=== PATIENT | female | born 1980 | race Caucasian/White ===

== ENCOUNTER 2017-04-26 16:14 | Emergency (ER) | payer OTHER ==
[~2017-04-26] VITALS: Ht 170.2 cm; Wt 122.5 kg
--- NOTE | ~2017-04-26 | CR170 ---
[facility] A Service of [facility] & [facility] RADIOLOGY TEXT RESULTS PATIENT: LA CAMPBELL LOCATION: [facility] : 82 UNIT #: [id number] AGE: [address]: Sushma Prasad APRN SEX: F ORDER DR: [id number] [facility] [address] [place], [place] [address] [id number] E MR#: [id number] Acc #: [id number] NAME: LA CAMPBELL : 1980 SEX: F STUDY DATE/TIME: 04/26/2017 16:36 UNIT: [facility] ROOM: STUDY DESCRIPTION: CR Knee 2 Views Rt Attending Physician: Sushma Prasad A.P.R.N. Ordering Physician: Ed Doctor [id number] [facility] REPORT This report is preliminary unless electronic signature is present EXAM Two views right knee. Date: 04/26/2017 HISTORY Posterior knee pain for 2 weeks. No known injury. COMPARISON None. FINDINGS AP and lateral projection of the knee shows smooth articular anatomy without indication of fracture or dislocation at the major weight-bearing surface of the knee. There is no indication of radiopaque foreign body about the knee surface or joint effusion. IMPRESSION Normal knee. Dictated by... Vanessa Guevara M.D. THIS IS AN ELECTRONICALLY VERIFIED REPORT Vanessa Guevara M.D. at 04/28/2017 8:51 AM BRENT/ting TD: 04/27/2017 04:59 JOB #: [id number] MEDICAL IMAGING REPORT Page 1 of 1 COPY
[~2017-04-26 16:14] MED LIST: ACYCLOVIR400 MG PO; AMOXICILLIN PO; AMOXICILLIN500 M1 PO; BACTRIM DS TABL1 TA1 PO; BENADRYL25 MG PO; CIPRO PO; CLARITIN10 MG PO; FLEXERIL PO; FLEXERIL10 MG PO; GLUCOPHAGE XR500 MG PO; IBUPROFEN800 MG PO; KEFLEX500 MG PO; LORTAB 5/500 TA1 TA1 PO; MAGIC MOUTHWASH PO; MAGIC MOUTHWASH TOP; METFORMIN PO; NAPROSYN500 MG PO; NO MEDICATIONS; ORUDIS75 M1 PO; PEN-VEE K PO; PHENERGAN25 M1 PO; PREDNISONE PO; PREDNISONE10 MG PO; PREDNISONE50 MG PO; TYLENOL #3 PO; ULTRAM PO; VIBRAMYCIN100 M1 PO; VICODIN 5/500 T1 TAB PO; VOLTAREN75 MG PO
== END 2017-04-26 17:40 | disposition home or self-care (01) ==
LOC: CED 16:14 → CFTX 16:14
DX: S83.421A Sprain of lateral collateral ligament of right knee, initial encounter (principal); F17.210 Nicotine dependence, cigarettes, uncomplicated; Z79.899 Other long term (current) drug therapy; X58.XXXA Exposure to other specified factors, initial encounter
CPT/HCPCS: 29530; 73560; 99283